=== PATIENT | female | born 1965 | race Caucasian/White ===

== ENCOUNTER 2017-05-10 10:47 | Day surgery (SDC) | payer OTHER ==
[~2017-05-10] VITALS: Ht 162.6 cm; Wt 68.0 kg
[2017-05-10] VITALS (14 sets, daily range): BP systolic 118–143; BP diastolic 64–87; PULSE 68–82; RESP 8–27; Ht 162.6 cm; Wt 68.0 kg
[~2017-05-10 10:47] MED LIST: DIPHENHYDRAMINE 50 MG INJ IV PRN; EPHEDrine SULFATE 50 MG/5 ML SYG ONE; MEPERIDINE 25 MG INJ IV PRN; ONDANSETRON 4 MG INJ IV PRN; OXYCODONE/ACETAMINOPHEN (5/325) TAB PO PRN; PROCHLORPERAZINE 10 MG INJ IV PRN
[2017-05-10] MEDS ORDERED: CEFAZOLIN 2 GM/50 ML (PMX) 50 ML IVPB ONE (11:30)
[2017-05-10] MEDS ORDERED: SOD CHLORIDE 0.9% 1,000 ML IV SCH (11:30)
[2017-05-10] MEDS ORDERED: HYDR-906 PO (11:49)
[2017-05-10] MEDS ORDERED: IBUP-1542 PO (11:51)
[2017-05-10] MEDS ORDERED: CYCL-319 PO (11:52)
[2017-05-10 12:20] LABS: ADD SCAN DIFF NO
[2017-05-10 12:27] LABS: BASOPHIL # 0.1 10^3/ul (0.0-0.1); BASOPHILS % 0.6 % (0.0-2.0); EOSINOPHILS # 0.1 10^3/ul (0.0-0.5); EOSINOPHILS % 1.4 % (0.0-7.0); LYMPHOCYTES # 4.2 10^3/ul (0.8-2.9); LYMPHOCYTES % 42.3 % (15.0-51.0); MEAN CORPUSCULAR HEMOGLOBIN 29.3 pg (29.0-33.0); MEAN CORPUSCULAR HGB CONC 33.3 g/dl (32.0-37.0); MEAN PLATELET VOLUME 9.6 fl (7.4-10.4); MONOCYTE # 0.5 10^3/ul (0.3-0.9); MONOCYTES % 5.2 % (0.0-11.0); NEUTROPHIL # 4.9 10^3/ul (1.6-7.5); NEUTROPHILS % 50.3 % (39.0-77.0); PLATELET COUNT 289 10^3/UL (140-415); RED BLOOD COUNT 4.43 10^6/ul (4.20-5.40); RED CELL DISTRIBUTION WIDTH 13.6 % (11.5-14.5); WHITE BLOOD COUNT 9.8 10^3/ul (4.8-10.8)
[2017-05-10 12:38] LABS: INR 0.91; PARTIAL THROMBOPLASTIN TIME 28.6 Sec (25.0-35.0); PROTIME 12.3 Sec (12.2-14.2)
[2017-05-10 12:50] LABS: ALBUMIN 4.5 g/dl (3.3-4.9); ALBUMIN/GLOBULIN RATIO 1.95; BILIRUBIN,INDIRECT 0.2 mg/dl (0-1.1); BILIRUBIN,TOTAL 0.2 mg/dl (0.2-1.3); TOTAL PROTEIN 6.8 g/dl (6.1-8.1)
[2017-05-10 12:51] LABS: CALCIUM 9.1 mg/dl (8.4-10.2); CREATININE 0.55 mg/dl (0.44-1.00); POTASSIUM 3.5 mmol/L (3.5-5.1)
--- NOTE | 2017-05-10 12:52 | RADRPT ---
PROCEDURE: XR Chest. CLINICAL INDICATION: Preoperative, hernia TECHNIQUE: Single frontal view of the chest was obtained COMPARISON: None FINDINGS: The heart and mediastinum are within normal limits. The lungs are clear. There is no pleural effusion or pneumothorax. RPTAT: AA IMPRESSION: No acute disease. .Glynn Bonilla MD, MD Date Time Electronically viewed and signed by .Glynn Bonilla MD, on 05/10/2017 12:52 .S/
[2017-05-10] MEDS ORDERED: POLYMYXIN/BACITRACIN 1L IRRIG ONE (13:05)
[2017-05-10] MEDS ORDERED: BUPIVACAINE 0.25% (MPF) 30 ML INJ ONE (13:05)
[2017-05-10] MEDS ORDERED: MIDAZOLAM 1 MG/ML 2 ML INJ ONE (13:18)
[2017-05-10] MEDS ORDERED: LIDOCAINE 2% (SDV) 5 ML INJ ONE (13:18)
[2017-05-10] MEDS ORDERED: FENTAnyl 50 MCG/ML VIAL ONE (13:18)
[2017-05-10] MEDS ORDERED: CEFAZOLIN 1 GM INJ ONE (13:18)
[2017-05-10] MEDS ORDERED: PROPOFOL 20 ML ONE (13:18)
[2017-05-10] MEDS ORDERED: ONDANSETRON 4 MG INJ ONE ×2 (13:33→14:24)
[2017-05-10] MEDS ORDERED: METOCLOPRAMIDE 10 MG INJ ONE (13:33)
[2017-05-10] MEDS ORDERED: POLYMYXIN/BACITRACIN 1L IRRIG IRR ONE (13:49)
[2017-05-10] MEDS ORDERED: BUPIVACAINE 0.25% (MPF) 30 ML INJ INJ ONE (13:49)
[2017-05-10] MEDS ORDERED: KETOROLAC 30 MG INJ ONE (14:07)
--- NOTE | 2017-05-10 14:16 | OPR ---
Date/Time of Note Date/Time of Note DATE: 05/10/17 TIME: 14:15 Operative Report Preoperative Diagnosis RIH Postoperative Diagnosis incarcerated right incisional hernia Operation/Procedure Performed open incarcerated ventral incisional hernia repair mesh implantation therapeutic injection of marcaine Surgeon: Tiffanie DRAKE G. SEONG May 10, 2017 14:16
[2017-05-10] MEDS ORDERED: HYDROmorphONE (0.2 MG/ML) 10ML SYG IV ONE (14:24)
[2017-05-10] MEDS ORDERED: HYDROCODONE/APAP (5/325) TAB PO ONE (14:30)
[2017-05-10] MEDS: HYDROmorphONE (0.2 MG/ML) 10ML SYG IV PRN ×2 (14:37→14:48)
[2017-05-10] MEDS: FENTAnyl 50 MCG/ML VIAL IV PRN ×2 (14:39→14:55)
--- NOTE | 2017-05-10 14:53 | OPR ---
DATE OF OPERATION: 05/10/2017 INDICATION: This is a 51-year-old female with right groin incisional hernia. She requests surgical repair. Risks, alternatives, benefits, and personnel were discussed with patient. Patient express ed understanding and consents to the operation. PREOPERATIVE DIAGNOSIS: Right inguinal hernia. POSTOPERATIVE DIAGNOSIS: Incarcerated right groin incisional hernia. OPERATION PERFORMED: 1. Repair of abdominal incisional hernia. CPT code 50885. 2. Implantation of mesh for open incisional hernia. CPT code 53632. 3. Therapeutic injection [place] [address]. SURGEON: Edgar Du MD SPECIMEN: None. COMPLICATIONS: None. ANESTHESIA: General. DESCRIPTION OF PROCEDURE: The patient was taken to the OR and prepped and draped in usual sterile f ashion. Surgical timeout was performed. IV antibiotics were given. Right inguinal oblique incisio n was made with a 10 blade. Dissection cautery was carried down. There appears to be an extensive amount of scar tissue, and due to the body habitus, it was difficult to identify that there were rogelio e areas of scar tissue from a Pfannenstiel incision from prior surgery. Dissection cautery was vzaquez ied down to the fascia. There appeared to be an incisional hernia defect which was incarcerated. T his was reduced. The disk portion of the UltraPro hernia system mesh was secured with multiple 0 Pr olenes. Onlay mesh was secured in a similar fashion with running 3-0 Vicryl. There was good hemost asis. Due to tissue defect, the closure was performed with multilayer closed with interrupted 3-0 V icryl and skin dionna. Local anesthesia was injected. Also, right ilioinguinal block was performe d by first identifying the ASIS and 2 cm medial, and in a fanning motion, local anesthesia was injec pranav. Dry dressings were applied. Dictated By: EDGAR DU MD SB/NTS Conf#: [id number] DID#: [id number]
--- NOTE | 2017-05-11 15:44 | RADRPT ---
Vent Rate: 71 bpm RR Interval: 0 msec CO Interval: 156 msec QRS Duration: 84 msec QT Interval: 428 msec QTC Interval: 465 msec P-R-T [place]: 51 - -7 - 20 degrees Normal sinus rhythm Normal ECG Electronically Signed By: Marco Antonio Wen [id number]
--- NOTE | 2017-05-12 14:21 | OPR ---
DATE OF OPERATION: 05/10/2017 INDICATION: This is a 51-year-old female with a right lower abdominal hernia. She requests surgica l repair. Risks, alternatives, benefits and personnel were discussed with the patient. Patient exp resses understanding and consents to the operation. PREOPERATIVE DIAGNOSIS: Right lower abdominal incisional hernia. POSTOPERATIVE DIAGNOSIS: Incarcerated right lower abdominal incisional hernia. OPERATION PERFORMED: 1. Right lower ventral incarcerated incisional hernia repair. 2. Implantation of mesh for open incisional hernia. 3. Therapeutic injection [place] [address]. SURGEON: Edgar Du MD SPECIMEN: None. COMPLICATIONS: None. ANESTHESIA: General. DESCRIPTION OF PROCEDURE: The patient was taken to the OR and prepped and draped in the usual ster ile fashion. Surgical timeout was performed. IV antibiotics were given. Right inguinal oblique in cision was made with a 10 blade. Upon further inspection, there was scar tissue that was most likel y related to a prior Pfannenstiel incision. There was a incisional hernia defect identified with in carcerated hernia contents. This was reduced manually. This area was then bolstered with the dista l portion of the UltraPro hernia system mesh and secured in place with interrupted 0 Prolene. The o nlay mesh was secured in place also with interrupted 0 Prolene. There was good hemostasis. Tissues were closed in a multilayer closure with interrupted 3-0 Vicryl and skin dionna. Local anesthesia was injected and dressings were applied. Dictated By: EDGAR PAREDES/DUANE Conf#: [id number] DID#: [id number]
== END 2017-05-10 16:35 | disposition home or self-care (01) ==
LOC: SDS 10:47
PROVIDERS: ATTEND Surgery
DX: K43.0 Incisional hernia with obstruction, without gangrene (principal); Z87.891 Personal history of nicotine dependence
CPT/HCPCS: 49561; 49568; 71010; 80053; 85025; 85610; 85730; 93005; C1781; J0690; J1170; J1885; J2175; J2250; J2405; J2765; J3010; Z7512; Z7610